=== PATIENT | male | born 2000 | race Caucasian/White ===

== ENCOUNTER 2019-10-08 00:03 | Emergency (ER) | payer BC ==
[~2019-10-08] VITALS: Ht 180.3 cm; Wt 77.3 kg
[2019-10-08 00:07] VITALS: TEMP 97.6
[2019-10-08 01:12] VITALS: BP 128/89; PULSE 78
== END 2019-10-08 01:12 | disposition home or self-care (01) ==
LOC: COL.ER 00:03
DX: R07.89 Other chest pain (principal)